=== PATIENT | male | born 1970 | race Caucasian/White ===

== ENCOUNTER 2019-12-10 17:12 | Inpatient (IN) | payer OTHER ==
[2019-12-10 20:07] VITALS: BMI 25.3
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
[2019-12-10] MEDS ORDERED: chlordiazePOXIDE HCL 25 MG CAPSULE PO PRN (22:02)
[2019-12-10] MEDS ORDERED: ACETAMINOPHEN 325 MG TABLET (FP) PO PRN ×2 (22:02)
[2019-12-10] MEDS ORDERED: MENTHOL/PHENOL 1 EACH UD MM PRN (22:02)
[2019-12-10] MEDS ORDERED: METHOCARBAMOL 500 MG TABLET PO PRN (22:02)
[2019-12-10] MEDS ORDERED: hydrOXYzine PAMOATE 25 MG CAPSULE (FP) PO PRN (22:02)
[2019-12-10] MEDS ORDERED: MAGNESIUM CITRATE 300 ML BOTTLE PO PRN (22:02)
[2019-12-10] MEDS ORDERED: DICYCLOMINE HCL 10 MG CAPSULE PO PRN (22:02)
[2019-12-10] MEDS ORDERED: NICOTINE POLACRILEX 2 MG GUM BUC PRN (22:02)
[2019-12-10] MEDS ORDERED: MAG HYDROX/AL HYDROX/SIMETH 30 ML UNIT-DOSE CUP PO PRN (22:02)
[2019-12-10] MEDS ORDERED: MELATONIN 5 MG TABLETS PO PRN (22:02)
[2019-12-10] MEDS ORDERED: MAGNESIUM HYDROX 2400MG/30ML ORAL SUSPENSION 30 ML CUP PO PRN (22:02)
[2019-12-10] MEDS ORDERED: ONDANSETRON *ODT* 4 MG TABLET SL PRN (22:02)
[2019-12-10] MEDS ORDERED: P-EPHED 60MG/TRIPROLIDI 2.5MG TABLET PO PRN (22:02)
[2019-12-10] MEDS ORDERED: guaiFENesin 200 MG/10 ML 10 ML UNIT-DOSE CUPS PO PRN (22:02)
[2019-12-10] MEDS ORDERED: ALBUTEROL SO4 8 GM HFA INHALER IH PRN (22:15)
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
[2019-12-10] MEDS: chlordiazePOXIDE HCL 25 MG CAPSULE PO SCH (22:58)
[2019-12-11] MEDS: cloNIDine HCL 0.1 MG TABLET PO PRN (03:38)
[2019-12-11] MEDS: chlordiazePOXIDE HCL 25 MG CAPSULE PO SCH ×4 (05:26→22:17)
--- NOTE | 2019-12-11 06:56 | PN ---
[facility] Progress Note Note: returns from [facility] hand xray negative for fx. p- augmentin 875mg bid for cellulitis of r hand
--- NOTE | 2019-12-11 08:31 | CONSULT ---
[facility] Psychiatric Consult - Data Date of interview: 12/11/19 Identifying data: Mr Enamorado is a 49 years old single male, father of 2 children, unemployed reveiving public assistance, homeless seeking detox treatment for alcohol and opioid Substance Abuse History: Reports history of alcohol and heoin use. Refer to addiction counselor;s summary for further information Medical History: Significant for bronchial asthma, anemia and history of alcohol related seizure. Patient i on methadone 125 mg/day from [facility]. Smokes cigarettes 1 ppd Psychiatric History: Reports that his only psychiatric contact occured at age 15 when he was referred by the [facility] for psychiatric evaluation on account of behavior issues. Reports that he received psychotherapy for 2-3 months. Denies previous psychiatric hospitalization or suicidal ideations. At present, reports feeling mildly anxious Physical/Sexual Abuse/Trauma History: Denies history of abuse as a child or DV relationship as an adult Mental Status Exam - Mental Status Exam Alert and Oriented to: Time, Place, Person Cognitive Function: Fair Patient Appearance: Well Groomed Mood: Anxious Affect: Appropriate Patient Behavior: Cooperative Speech Pattern: Clear Voice Loudness: Normal Thought Process: Goal Oriented Thought Disorder: Not Present Hallucinations: Denies Suicidal Ideation: Denies Homicidal Ideation: Denies Insight/Judgement: Good Sleep: Well Appetite: Good Muscle strength/Tone: Normal Gait/Station: Normal Psychiatric Findings - Problem List ([place] 1, 2,3) (1) Substance-induced anxiety disorder Current Visit: Yes Status: Acute (2) Alcohol dependence with withdrawal, uncomplicated Current Visit: Yes Status: Acute (3) Opioid dependence on agonist therapy Current Visit: Yes Status: Chronic (4) Nicotine dependence Current Visit: Yes Status: Chronic Qualifiers: Nicotine product type: cigarettes Substance use status: uncomplicated Qualified Code(s): F17.210 - Nicotine dependence, cigarettes, uncomplicated (5) Anemia Current Visit: Yes Status: Chronic Qualifiers: Anemia type: unspecified type Qualified Code(s): D64.9 - Anemia, unspecified (6) Asthma Current Visit: Yes Status: Chronic Qualifiers: Asthma severity: mild Asthma persistence: intermittent Asthma complication type: uncomplicated Qualified Code(s): J45.20 - Mild intermittent asthma, uncomplicated (7) HTN (hypertension) Current Visit: Yes Status: Chronic Qualifiers: Hypertension type: essential hypertension Qualified Code(s): I10 - Essential (primary) hypertension (8) Withdrawal seizures Current Visit: Yes Status: Resolved Qualifiers: Complication of substance-induced condition: uncomplicated Qualified Code(s ): F19.230 - Other psychoactive substance dependence with withdrawal, uncomplicated; R56.9 - Unspecified convulsions - Initial Treatment Plan Initial Treatment Plan: 1) Continue Vistaril 25 mg po Q 6 hrs prn for anxiety ordered by [employer]. 2) Continue inpatient detoxification
[2019-12-11] MEDS ORDERED: METHADONE HCL 10 MG TABLET PO ONE ×2 (09:13)
[2019-12-11] MEDS ORDERED: METHADONE 120 MG, METHADONE 5 MG PO ONE (09:45)
[2019-12-11 10:09] LABS: HEMATOCRIT 38.2 % (35.4-49); HEMOGLOBIN 12.7 GM/dL (11.7-16.9); MCH 33.8 pg (25.7-33.7); MCHC 33.3 g/dl (32.0-35.9); MEAN CELL VOLUME 101.5 fl (80-96); MEAN PLT VOLUME 9.2 fl (7.5-11.1); PLATELET COUNT 111 K/MM3 (134-434); RBC 3.76 M/mm3 (4.00-5.60); RDW 13.2 % (11.9-15.9)
[2019-12-11] MEDS ORDERED: METHADONE HCL 5 MG TABLET ONE (10:25)
[2019-12-11] MEDS ORDERED: METHADONE HCL 40 MG DISPERSABLE TABLET ONE (10:25)
[2019-12-11 10:26] LABS: ALBUMIN 3.1 g/dl (3.4-5.0); BILIRUBIN,TOTAL 0.5 mg/dL (0.2-1); BLOOD UREA NITROGEN 15.3 mg/dL (7-18); CALCIUM 8.4 mg/dL (8.5-10.1); CREATININE 0.8 mg/dL (0.55-1.3); POTASSIUM 3.7 mmol/L (3.5-5.1); TOT PROT 6.9 g/dl (6.4-8.2)
[2019-12-11] MEDS: PRENATAL VITAMINS W/ FOLIC ACID TABLET (FP) PO SCH (11:04)
[2019-12-11] MEDS: NICOTINE 21 MG/24 HOURS TOPICAL PATCH TD SCH (11:08)
--- NOTE | 2019-12-11 12:03 | PN ---
[facility] CIWA - CIWA Score Nausea/Vomitin-No Nausea/No Vomiting Muscle Tremors: 4-Moderate,w/Arms Extend Anxiety: 3 Agitation: 4-Moderately Restless Paroxysmal Sweats: 3 Orientation: 0-Oriented Tacttile Disturbances: 0-None Auditory Disturbances: 0-None Visual Disturbances: 0-None Headache: 0-None Present CIWA-Ar Total Score: 14 [facility] Progress Note (SOAP) Subjective: sweats hot/cold chills interrupted sleep agitation restless body aches Objective: 12/11/19 12:02 Vital Signs Temperature 98.1 F 12/11/19 09:54 Pulse Rate 96 H 12/11/19 09:54 Respiratory Rate 18 12/11/19 09:54 Blood Pressure 148/88 12/11/19 09:54 O2 Sat by Pulse Oximetry (%) Laboratory Tests 12/11/19 12/11/19 12/11/19 08:30 08:30 08:30 WBC 4.0 RBC 3.76 L Hgb 12.7 Hct 38.2 MCV 101.5 H MCH 33.8 H MCHC 33.3 RDW 13.2 Plt Count 111 L MPV 9.2 Sodium 140 Potassium 3.7 Chloride 104 Carbon Dioxide 28 Anion Gap 7 L BUN 15.3 Creatinine 0.8 Est GFR (CKD-EPI)AfAm 119.88 Est GFR (CKD-EPI)NonAf 103.43 Random Glucose 96 Calcium 8.4 L Total Bilirubin 0.5 AST 67 H ALT 42 Alkaline Phosphatase 85 Total Protein 6.9 Albumin 3.1 L HIV 1&2 Antibody Screen Negative HIV P24 Antigen Negative labs noted aaox3 lying in bed no acute distress Assessment: 12/11/19 12:03 withdrawals Plan: continue detox increase fluids
--- NOTE | 2019-12-11 12:46 | EKG ---
Test Reason : Blood Pressure : / mmHG Vent. Rate : 094 BPM Atrial Rate : 094 BPM P-R Int : 132 ms QRS Dur : 086 ms QT Int : 378 ms P-R-T Axes : 064 -13 066 degrees QTc Int : 472 ms NORMAL SINUS RHYTHM MINIMAL VOLTAGE CRITERIA FOR LVH, MAY BE NORMAL VARIANT NO PREVIOUS ECGS AVAILABLE Confirmed by THAIS CARRINGTON MD ([id number]) on 12/11/2019 12:46:16 PM Referred By: Confirmed By:THAIS CARRINGTON MD
[2019-12-11] MEDS: AMOX TR/POT CLAV 875MG/125MG TABLETS (FP) PO SCH (17:49)
[2019-12-11] MEDS ORDERED: THIAMINE HCL 100 MG TABLET (FP) PO SCH (22:00)
[2019-12-12] MEDS ORDERED: METHADONE HCL 5 MG TABLET ONE (04:41)
[2019-12-12] MEDS ORDERED: METHADONE HCL 40 MG DISPERSABLE TABLET ONE (04:41)
[2019-12-12] MEDS: chlordiazePOXIDE HCL 25 MG CAPSULE PO SCH ×2 (05:49→10:48)
[2019-12-12] MEDS ORDERED: METHADONE HCL 40 MG DISPERSABLE TABLET PO SCH ×2 (06:00)
[2019-12-12] MEDS ORDERED: METHADONE 120 MG, METHADONE 5 MG PO SCH (06:00)
[2019-12-12] MEDS: AMOX TR/POT CLAV 875MG/125MG TABLETS (FP) PO SCH (07:09)
[2019-12-12] MEDS: PRENATAL VITAMINS W/ FOLIC ACID TABLET (FP) PO SCH (10:48)
[2019-12-12] MEDS: NICOTINE 21 MG/24 HOURS TOPICAL PATCH TD SCH (10:48)
[2019-12-12] MEDS: cloNIDine HCL 0.1 MG TABLET PO PRN (10:50)
[2019-12-12 11:31] VITALS: BP 130/120; PULSE 109; TEMP 98.1
--- NOTE | 2019-12-12 15:46 | PN ---
[facility] CIWA - CIWA Score Nausea/Vomitin-No Nausea/No Vomiting Muscle Tremors: 7-Severe,w/o Arm Extended (on/off states "I shake like this all the time") Anxiety: 4-Mod. Anxious/Guarded (to leave) Agitation: 3 Paroxysmal Sweats: No Perspiration Orientation: 0-Oriented Tacttile Disturbances: 0-None Auditory Disturbances: 0-None Visual Disturbances: 0-None Headache: 0-None Present CIWA-Ar Total Score: 14 [facility] Progress Note (SOAP) Subjective: Pt was observed tremulous. c/o anxiety as well as wanting to leave to go to " [facility] to see my doctor". Pt was encouraged to stay in treatment to receive the help he needs but declined. Objective: 12/12/19 15:46 Vital Signs - 24 hr 12/11/19 12/11/19 12/12/19 17:41 21:39 00:30 Temperature 99.0 F 97.8 F Pulse Rate 65 78 Respiratory 18 18 18 Rate Blood Pressure 153/94 156/99 12/12/19 12/12/19 12/12/19 03:24 07:08 11:31 Temperature 97.7 F 98.1 F Pulse Rate 52 L 109 H Respiratory 18 18 18 Rate Blood Pressure 138/73 130/120 H Laboratory Tests 12/11/19 12/11/19 12/11/19 08:30 08:30 08:30 WBC 4.0 RBC 3.76 L Hgb 12.7 Hct 38.2 MCV 101.5 H MCH 33.8 H MCHC 33.3 RDW 13.2 Plt Count 111 L MPV 9.2 Sodium 140 Potassium 3.7 Chloride 104 Carbon Dioxide 28 Anion Gap 7 L BUN 15.3 Creatinine 0.8 Est GFR (CKD-EPI)AfAm 119.88 Est GFR (CKD-EPI)NonAf 103.43 Random Glucose 96 Calcium 8.4 L Total Bilirubin 0.5 AST 67 H ALT 42 Alkaline Phosphatase 85 Total Protein 6.9 Albumin 3.1 L RPR Titer HIV 1&2 Antibody Screen Negative HIV P24 Antigen Negative 12/11/19 08:30 WBC RBC Hgb Hct MCV MCH MCHC RDW Plt Count MPV Sodium Potassium Chloride Carbon Dioxide Anion Gap BUN Creatinine Est GFR (CKD-EPI)AfAm Est GFR (CKD-EPI)NonAf Random Glucose Calcium Total Bilirubin AST ALT Alkaline Phosphatase Total Protein Albumin RPR Titer Nonreactive HIV 1&2 Antibody Screen HIV P24 Antigen Alert o x 3 nad oob ambulating with steady gait around the unit without difficulty. Assessment: 12/12/19 15:47 AUD Noncompliant with treatment recommendations. Plan: Pt declined treatment signed out AMa
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
[2019-12-13] MEDS ORDERED: chlordiazePOXIDE HCL 10 MG CAPSULE PO PRN
[2019-12-13] MEDS ORDERED: chlordiazePOXIDE HCL 10 MG CAPSULE PO SCH (05:00)
[2019-12-14] MEDS ORDERED: chlordiazePOXIDE HCL 10 MG CAPSULE PO SCH (05:00)
[2019-12-15] MEDS ORDERED: chlordiazePOXIDE HCL 10 MG CAPSULE PO ONE (05:00)
== END 2019-12-12 11:50 | disposition left against medical advice (07) | DRG 770 ==
LOC: YASAS 17:12 → Y6N 21:58
PROVIDERS: ADMIT Allergy & Immunology; ATTEND Allergy & Immunology
PROC: HZ2ZZZZ Detoxification Services for Substance Abuse Treatment (ICD-10-PCS; principal; 2019-12-10)
DX: F11.20 Opioid dependence, uncomplicated (principal); F17.213 Nicotine dependence, cigarettes, with withdrawal; F19.280 Other psychoactive substance dependence with psychoactive substance-induced anxiety disorder; I10 Essential (primary) hypertension; J45.20 Mild intermittent asthma, uncomplicated; D64.9 Anemia, unspecified; R25.1 Tremor, unspecified; S69.91XA Unspecified injury of right wrist, hand and finger(s), initial encounter; R22.31 Localized swelling, mass and lump, right upper limb; Z86.69 Personal history of other diseases of the nervous system and sense organs; Z88.6 Allergy status to analgesic agent; Z91.14 Patient's other noncompliance with medication regimen; Z91.19 Patient's noncompliance with other medical treatment and regimen; X58.XXXA Exposure to other specified factors, initial encounter; Y93.9 Activity, unspecified; Y92.9 Unspecified place or not applicable
CPT/HCPCS: 36415; 80053; 85027; 86593; 87389; 93005; 93010; J0735

== ENCOUNTER 2019-12-11 01:12 | Emergency (ER) | payer OTHER ==
[2019-12-11 01:20] VITALS: BP 136/73; PULSE 89; TEMP 97.6; BMI 26.9
[2019-12-11] MEDS ORDERED: AMOX TR/POT CLAV 875MG/125MG TABLETS (FP) PO ONE (01:20)
[2019-12-11] MEDS ORDERED: DIPHTH,PERTUSS(ACELL),TET 0.5 ML DISP.SYRIN IM ONE ×2 (01:20→01:35)
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
[2019-12-11] MEDS ORDERED: AMOX TR/POT CLAV 875MG/125MG TABLETS (FP) ONE (01:35)
== END 2019-12-11 02:21 | disposition home or self-care (01) ==
LOC: JER 01:12
PROC: 3E0234Z Introduction of Serum, Toxoid and Vaccine into Muscle, Percutaneous Approach (ICD-10-PCS; principal; 2019-12-11)
DX: S69.91XA Unspecified injury of right wrist, hand and finger(s), initial encounter (principal); X58.XXXA Exposure to other specified factors, initial encounter; Y93.89 Activity, other specified; Y92.89 Other specified places as the place of occurrence of the external cause; Z88.8 Allergy status to other drugs, medicaments and biological substances; F10.10 Alcohol abuse, uncomplicated; I10 Essential (primary) hypertension; J45.909 Unspecified asthma, uncomplicated; R56.9 Unspecified convulsions
CPT/HCPCS: 73130-TC-RT-FY; 90471; 90715; 99282-25